=== PATIENT | female | born 1975 | race American Indian/Alaskan Native ===

== ENCOUNTER 2021-02-12 19:36 | Emergency (ER) | payer SELFPAY ==
--- NOTE | 2021-02-13 10:23 | Electrocardiograph Report ---
[facility] Test Date: 2021-02-12 Test Time: 19:57:09 Pat Name: CHRISTINA JARAMILLO Department: Room: Gender: F [employer]: RE : 1975 Requested By: JINA JFEFERS Order Number: [id number] Reading MD: Burke Colby Measurements Intervals [place] Rate: 80 P: 9 OR: 145 QRS: -13 QRSD: 80 T: 6 QT: 372 QTc: 429 Interpretive Statements Sinus rhythm Low voltage, precordial leads NSTW'S No previous ECG available for comparison Electronically Signed On 02-13-2021 10:23:27 EDT by Burke Colby
== END 2021-02-12 19:41 | disposition left against medical advice (07) ==
LOC: ED 19:36
DX: R06.02 Shortness of breath (principal); Z53.21 Procedure and treatment not carried out due to patient leaving prior to being seen by health care provider
CPT/HCPCS: 93005